=== PATIENT | female | born 1970 | race Caucasian/White ===

== ENCOUNTER 2020-04-03 10:21 | Emergency (ER) | payer BC ==
[~2020-04-03] VITALS: Ht 160 cm; Wt 47.6 kg
[2020-04-03 10:25] VITALS: BP_SYST 123
[2020-04-03 11:53] LABS: BASOPHILS % (AUTO) 0.5 % (0.0-2.0); EOSINOPHILS % (AUTO) 0.5 % (0.0-4.0); HEMATOCRIT 38.6 % (36-48); HEMOGLOBIN 12.7 g/dL (12.0-16.0); LYMPHOCYTES # (AUTO) 1.2 K/uL (1.0-5.5); LYMPHOCYTES % (AUTO) 16.6 % (20.5-51.5); MEAN CORPUSCULAR HEMOGLOBIN 28 pg (27-31); MEAN CORPUSCULAR HGB CONC 33 % (32-36); MEAN CORPUSCULAR VOLUME 85 fL (79.0-98.0); MONOCYTES # (AUTO) 0.4 K/uL (0.0-1.0); MONOCYTES % (AUTO) 5.8 % (1.7-9.3); NEUTROPHILS # (AUTO) 5.7 K/uL (1.8-7.7); NEUTROPHILS % (AUTO) 76.6 % (40.0-70.0); PLATELET COUNT (AUTO) 379 K/uL (130-430); RED BLOOD CELL COUNT(AUTO) 4.52 MIL/uL (4.2-6.2); RED CELL DISTRIBUTION WIDTH 15.5 % (9.0-15.0); WHITE BLOOD COUNT (AUTO) 7.5 K/uL (4.8-10.8)
[2020-04-03 12:08] LABS: CALCIUM 8.8 mg/dL (8.4-11.0); CREATININE 0.64 mg/dL (0.55-1.30); POTASSIUM 3.5 mmol/L (3.5-5.1)
[2020-04-03 12:11] LABS: C-REACTIVE PROTEIN QUANT 4.6 mg/dL (0-0.5)
[2020-04-03 12:13] LABS: ALBUMIN 3.8 g/dL (3.4-4.8); TOTAL BILIRUBIN 0.3 mg/dL (0.0-1.0)
[2020-04-03 14:02] VITALS: BP_SYST 121
[2020-04-03 15:42] LABS: BILIRUBIN,URINE NEGATIVE (NEGATIVE); BLOOD, URINE NEGATIVE (NEGATIVE); CLARITY/URINE CLOUDY (CLEAR); COLOR,URINE YELLOW (YELLOW); GLUCOSE,URINE NEGATIVE (NEGATIVE); KETONES,URINE 3+ (NEGATIVE); LEUKOCYTE ESTERASE ,URINE 1+ (NEGATIVE); NITRITE, URINE NEGATIVE (NEGATIVE); PROTEIN URINE 1+ (NEGATIVE)
[2020-04-03 15:48] LABS: RBC,URINE 0-3 /HPF (0-3)
[2020-04-03 15:49] LABS: BACTERIA,URINE MODERATE /HPF (None Seen); MUCUS,URINE None Seen /LPF (None Seen); WBC,URINE >100 /HPF (0-3)
== END 2020-04-03 14:02 | disposition home or self-care (01) ==
LOC: SED 10:21
DX: N30.00 Acute cystitis without hematuria (principal); B34.9 Viral infection, unspecified; Z20.828 Contact with and (suspected) exposure to other viral communicable diseases
CPT/HCPCS: 36415; 71045; 80053; 81000; 81025; 83605; 85025; 86140; 87040; 87086; 93005; 99285; C9803; U0003